=== PATIENT | female | born 1980 | race Hispanic/Latino ===

== ENCOUNTER 2016-10-27 19:50 | Emergency (ER) | payer MEDICAID ==
[2016-10-27 22:04] LABS: Basophils % (Auto) 0.6 % (0.0-1.8); Eosinophils % (Auto) 1.4 % (0.0-4.3); Hematocrit 40.4 % (30.3-42.9); Hemoglobin 13.3 gm/dl (10.1-14.3); Mean Corpuscular HGB Conc 33 % (30-34); Mean Corpuscular Hemoglobin 26 pg (28-32); Mean Corpuscular Volume 79 fl (79-97); Platelet Count 214 K/mm3 (140-440); Red Blood Count 5.11 M/mm3 (3.65-5.03); White Blood Count 10.7 K/mm3 (4.5-11.0)
[2016-10-27 22:23] LABS: Alanine Aminotransferase 21 units/L (7-56); Albumin/Globulin Ratio 1.3 %; Alkaline Phosphatase 63 units/L (35-129); Anion Gap 18 mmol/L; BUN/Creatinine Ratio 15.71; Blood Urea Nitrogen 11 mg/dL (7-17); Calcium 9.5 mg/dL (8.4-10.2); Carbon Dioxide 24 mmol/L (22-30); Chloride 95.1 mmol/L (98-107); Glucose 327 mg/dL (65-100); Potassium 4.2 mmol/L (3.6-5.0); Sodium 133 mmol/L (137-145)
[2016-10-28 00:07] LABS: Bilirubin,Urine NEG (Negative); Blood,Urine NEG (Negative); Ketones,Urine NEG (Negative); Leukocyte Esterase,Urine NEG (Negative); Mucus,Urine FEW /HPF; Nitrite,Urine NEG (Negative); Protein,Urine <15 mg/dL mg/dL (Negative); Urobilinogen,Urine < 2.0 mg/dL (<2.0)
--- NOTE | 2016-10-28 02:25 | Emergency Department Report ---
ED General Adult HPI - General Chief complaint: Abdominal Pain Stated complaint: 7 WKS PREG/CRAMPS/HIGH BLOOD SUGAR/UTI Time Seen by Provider: 10/28/16 02:19 Source: patient Mode of arrival: Ambulatory Limitations: No Limitations - History of Present Illness Initial comments: This is a 36-year-old female. She is previously unknown to me. She is 4, para 1. Last menstrual period is August. She reports that she follows life cycle. She reports that she is going [place] [facility] [place] The [place] presents to the ER with lower abdominal cramping, discomfort with urination, and sensation of hyperglycemia. Patient reports recent sexual activity with her partner, it is not more vigorous or enthusiastic than normal. She reports a few episodes of nausea. Patient reports that these symptoms feel similar to prior episodes of hyperglycemia. they have no exacerbating or relieving factors otherwise. The abdominal cramping does not radiate anywhere. -: Gradual Location: abdomen Quality: other (cramping) Consistency: intermittent Improves with: none Worsens with: none Associated Symptoms: nausea/vomiting. denies: denies other symptoms, confusion , chest pain, cough, diaphoresis, headaches, loss of appetite, malaise, shortness of breath, syncope, weakness - Related Data Previous Rx's Medication Instructions Recorded Last Taken Type Cyclobenzaprine [Flexeril 10 MG 10 mg PO TID PRN #30 tablet 12/15/14 Unknown Rx TAB] HYDROcodone/APAP 5-325 [Bland 1 each PO Q6HR PRN #20 tablet 12/15/14 Unknown Rx 5-325 mg TAB] Ibuprofen [Motrin 600 MG tab] 600 mg PO Q8H PRN #40 tablet 12/15/14 Unknown Rx metFORMIN [Glucophage] 500 mg PO BID #60 tablet 12/15/14 Unknown Rx Butalbit/Acetamin/Caff/Codeine 1 each PO Q8H PRN #15 capsule 03/18/15 Unknown Rx [Fioricet/Codeine [id number]] Promethazine [Phenergan TAB] 25 mg PO Q8HR PRN #15 tab 03/18/15 Unknown Rx Vit No.130/Iron/FA 1 each PO QDAY #30 tablet 10/23/15 Unknown Rx [ Tablet] Azithromycin [Zithromax TAB] 500 mg PO QDAY #6 tablet 11/05/16 Unknown Rx Sulfamethoxazole/Trimethoprim 1 each PO BID #14 tablet 04/23/16 Unknown Rx [Bactrim DS TAB] Doxylamine/Pyridoxine HCl 1 each PO QHS PRN #30 tablet. 10/28/16 Unknown Rx [Diclegis Dr 10-10 mg Tablet] Vee Root [Vee] 250 mg PO QID PRN #30 capsule 10/28/16 Unknown Rx Vit W-Ca,Fe,FA(<1 mg) 1 each PO QDAY #30 tablet 10/28/16 Unknown Rx [ Vitamins] Allergies Allergy/AdvReac Type Severity Reaction Status Date / Time acetaminophen Allergy Unknown Verified 11/26/14 13:46 [From Darvocet-N] Penicillins Allergy Unknown Verified 11/26/14 13:46 propoxyphene napsylate Allergy Unknown Verified 11/26/14 13:46 [facility] ED Review of Systems ROS: Stated complaint: 7 WKS PREG/CRAMPS/HIGH BLOOD SUGAR/UTI Other details as noted in HPI Constitutional: denies: fever Eyes: denies: vision change ENT: denies: epistaxis Respiratory: denies: cough Cardiovascular: denies: chest pain Gastrointestinal: abdominal pain Genitourinary: frequency. denies: hematuria, discharge, abnormal menses, dyspareunia Musculoskeletal: denies: back pain Skin: denies: lesions Neurological: denies: headache Psychiatric: anxiety ED Past Medical Hx - Past Medical History Previous Medical History?: Yes Hx Diabetes: Yes Hx Headaches / Migraines: Yes Additional medical history: Vaginal delivery x 1 - Surgical History Past Surgical History?: Yes Hx Cholecystectomy: Yes (2001) - Social History Smoking Status: Never Smoker Substance Use Type: None - Medications Home Medications: Home Medications Medication Instructions Recorded Confirmed Last Taken Type Cyclobenzaprine [Flexeril 10 MG 10 mg PO TID PRN #30 tablet 12/15/14 Unknown Rx TAB] HYDROcodone/APAP 5-325 [Bland 1 each PO Q6HR PRN #20 tablet 12/15/14 Unknown Rx 5-325 mg TAB] Ibuprofen [Motrin 600 MG tab] 600 mg PO Q8H PRN #40 tablet 12/15/14 Unknown Rx metFORMIN [Glucophage] 500 mg PO BID #60 tablet 12/15/14 Unknown Rx Butalbit/Acetamin/Caff/Codeine 1 each PO Q8H PRN #15 capsule 03/18/15 Unknown Rx [Fioricet/Codeine [id number]] Promethazine [Phenergan TAB] 25 mg PO Q8HR PRN #15 tab 03/18/15 Unknown Rx Vit No.130/Iron/FA 1 each PO QDAY #30 tablet 10/23/15 Unknown Rx [ Tablet] Azithromycin [Zithromax TAB] 500 mg PO QDAY #6 tablet 04/23/16 Unknown Rx Sulfamethoxazole/Trimethoprim 1 each PO BID #14 tablet 04/23/16 Unknown Rx [Bactrim DS TAB] Doxylamine/Pyridoxine HCl 1 each PO QHS PRN #30 tablet. 10/28/16 Unknown Rx [Diclegis Dr 10-10 mg Tablet] Vee Root [Vee] 250 mg PO QID PRN #30 capsule 10/28/16 Unknown Rx Vit W-Ca,Fe,FA(<1 mg) 1 each PO QDAY #30 tablet 10/28/16 Unknown Rx [ Vitamins] ED Physical Exam - General Limitations: No Limitations General appearance: alert, in no apparent distress - Head Head exam: Present: atraumatic, normocephalic - Eye Eye exam: Present: normal appearance, PERRL, EOMI, other (visual acuity intact to finger counting, color perception, reading at a close distance). Absent: nystagmus - ENT ENT exam: Present: normal exam, normal orophraynx, mucous membranes moist, normal external ear exam - Neck Neck exam: Present: normal inspection, full ROM. Absent: tenderness, meningismus - Respiratory Respiratory exam: Present: normal lung sounds bilaterally. Absent: respiratory distress, wheezes, rales, rhonchi, stridor, chest wall tenderness, accessory muscle use, decreased breath sounds, prolonged expiratory - Cardiovascular Cardiovascular Exam: Present: regular rate, normal rhythm, normal heart sounds. Absent: bradycardia, tachycardia, irregular rhythm, systolic murmur, diastolic murmur, rubs, gallop - GI/Abdominal GI/Abdominal exam: Present: soft, normal bowel sounds. Absent: distended, tenderness, guarding, rebound, rigid, pulsatile mass - Extremities Exam Extremities exam: Present: normal inspection, full ROM, normal capillary refill. Absent: tenderness, pedal edema, joint swelling, calf tenderness - Back Exam Back exam: Present: normal inspection, full ROM. Absent: tenderness, CVA tenderness (R), CVA tenderness (L), muscle spasm, paraspinal tenderness, vertebral tenderness - Neurological Exam Neurological exam: Present: alert (visual acuity intact to finger counting, color perception, reading at a close distance), oriented X3, normal gait, other (Extraocular movements intact. Tongue midline. No facial droop. Facial sensation intact to light touch in the V1, V2, V3 distribution bilaterally. 5 and 5 strength in 4 extremities.. Sensation is intact to light touch in 4 extremities.). Absent: motor sensory deficit - Psychiatric Psychiatric exam: Present: normal affect, normal mood - Skin Skin exam: Present: warm, dry, intact, normal color. Absent: rash ED Course Vital Signs 10/27/16 10/28/16 21:22 01:45 Temperature 99.2 F Pulse Rate 81 78 Respiratory 20 16 Rate Blood Pressure 129/93 Blood Pressure 138/78 [Left] O2 Sat by Pulse 100 95 Oximetry - Reevaluation(s) Reevaluation #1: 10/28/16 04:36 Differential diagnosis: Hyperglycemia, , miscarriage, threatened miscarriage, nausea and vomiting of Assessment and plan: 36-year-old female with hyperglycemia, cramping, reported nausea. She is afebrile with reassuring vital signs is tolerating liquid feeds at this time. She is found to be Rh-, RhoGAM is ordered. A pelvic ultrasound demonstrates an intrauterine , with a small subchorionic bleed. Patient is mildly hyperglycemic without anion gap acidosis. This is chronic, and can be followed up by her outpatient [facility] doctor. She is going to follow up with outpatient high risk as well. At this point in time, the patient will be discharged with nausea medication, vitamins, instructions to follow up with outpatient gynecology. ED Medical Decision Making - Lab Data Result diagrams: 10/27/16 21:48 10/27/16 21:48 Vital Signs 10/27/16 10/28/16 21:22 01:45 Temperature 99.2 F Pulse Rate 81 78 Respiratory 20 16 Rate Blood Pressure 129/93 Blood Pressure 138/78 [Left] O2 Sat by Pulse 100 95 Oximetry Lab Results 10/27/16 10/27/16 10/27/16 Range/Units 21:48 21:48 23:20 WBC 10.7 (4.5-11.0) K/mm3 RBC 5.11 H (3.65-5.03) M/mm3 Hgb 13.3 (10.1-14.3) gm/dl Hct 40.4 (30.3-42.9) % MCV 79 (79-97) fl MCH 26 L (28-32) pg MCHC 33 (30-34) % RDW 15.0 (13.2-15.2) % Plt Count 214 (140-440) K/mm3 Lymph % (Auto) 35.3 H (13.4-35.0) % [place] % (Auto) 6.9 (0.0-7.3) % Eos % (Auto) 1.4 (0.0-4.3) % Baso % (Auto) 0.6 (0.0-1.8) % Lymph # 3.8 (1.2-5.4) K/mm3 [place] # 0.7 (0.0-0.8) K/mm3 Eos # 0.2 (0.0-0.4) K/mm3 Baso # 0.1 (0.0-0.1) K/mm3 Seg Neutrophils % 55.8 (40.0-70.0) % Seg Neutrophils # 6.0 (1.8-7.7) K/mm3 Sodium 133 L (137-145) mmol/L Potassium 4.2 (3.6-5.0) mmol/L Chloride 95.1 L (98-107) mmol/L Carbon Dioxide 24 (22-30) mmol/L Anion Gap 18 mmol/L BUN 11 (7-17) mg/dL Creatinine 0.7 (0.7-1.2) mg/dL Estimated GFR > 60 ml/min BUN/Creatinine Ratio 15.71 % Glucose 327 H (65-100) mg/dL Calcium 9.5 (8.4-10.2) mg/dL Total Bilirubin 0.30 (0.1-1.2) mg/dL AST 14 (5-40) units/L ALT 21 (7-56) units/L Alkaline Phosphatase 63 (35-129) units/L Total Protein 7.0 (6.3-8.2) g/dL Albumin 4.0 (3.9-5) g/dL Albumin/Globulin Ratio 1.3 % HCG, Quant (0-4) mIU/mL Urine Color Straw (Yellow) Urine Turbidity Clear (Clear) Urine pH 6.0 (5.0-7.0) Ur Specific [place] 1.035 H (1.003-1.030) Urine Protein <15 mg/dl (Negative) mg/dL Urine Glucose (UA) >=500 (Negative) mg/dL Urine Ketones Neg (Negative) mg/dL Urine Blood Neg (Negative) Urine Nitrite Neg (Negative) Urine Bilirubin Neg (Negative) Urine Urobilinogen < 2.0 (<2.0) mg/dL Ur Leukocyte Esterase Neg (Negative) Urine WBC (Auto) 3.0 (0.0-6.0) /HPF Urine RBC (Auto) 2.0 (0.0-6.0) /HPF U Epithel Cells (Auto) 6.0 (0-13.0) /HPF Urine Mucus Few /HPF Urine HCG, Qual Positive A (Negative) Blood Type Antibody Screen BETI Antibody Screen Ord Rhogam Gestat Weeks WEEKS 10/28/16 10/28/16 Range/Units 03:05 Unknown WBC (4.5-11.0) K/mm3 RBC (3.65-5.03) M/mm3 Hgb (10.1-14.3) gm/dl Hct (30.3-42.9) % MCV (79-97) fl MCH (28-32) pg MCHC (30-34) % RDW (13.2-15.2) % Plt Count (140-440) K/mm3 Lymph % (Auto) (13.4-35.0) % Vigo % (Auto) (0.0-7.3) % Eos % (Auto) (0.0-4.3) % Baso % (Auto) (0.0-1.8) % Lymph # (1.2-5.4) K/mm3 [place] # (0.0-0.8) K/mm3 Eos # (0.0-0.4) K/mm3 Baso # (0.0-0.1) K/mm3 Seg Neutrophils % (40.0-70.0) % Seg Neutrophils # (1.8-7.7) K/mm3 Sodium (137-145) mmol/L Potassium (3.6-5.0) mmol/L Chloride (98-107) mmol/L Carbon Dioxide (22-30) mmol/L Anion Gap mmol/L BUN (7-17) mg/dL Creatinine (0.7-1.2) mg/dL Estimated GFR ml/min BUN/Creatinine Ratio % Glucose (65-100) mg/dL Calcium (8.4-10.2) mg/dL Total Bilirubin (0.1-1.2) mg/dL AST (5-40) units/L ALT (7-56) units/L Alkaline Phosphatase (35-129) units/L Total Protein (6.3-8.2) g/dL Albumin (3.9-5) g/dL Albumin/Globulin Ratio % HCG, Quant 9286 H (0-4) mIU/mL Urine Color (Yellow) Urine Turbidity (Clear) Urine pH (5.0-7.0) Ur Specific [place] (1.003-1.030) Urine Protein (Negative) mg/dL Urine Glucose (UA) (Negative) mg/dL Urine Ketones (Negative) mg/dL Urine Blood (Negative) Urine Nitrite (Negative) Urine Bilirubin (Negative) Urine Urobilinogen (<2.0) mg/dL Ur Leukocyte Esterase (Negative) Urine WBC (Auto) (0.0-6.0) /HPF Urine RBC (Auto) (0.0-6.0) /HPF U Epithel Cells (Auto) (0-13.0) /HPF Urine Mucus /HPF Urine HCG, Qual (Negative) Blood Type A NEGATIVE Antibody Screen TNR BETI Antibody Screen Negative Ord Rhogam Gestat Weeks <11 WEEKS - Radiology Data Radiology results: report reviewed, image reviewed Obstetrics ultrasound demonstrates an intrauterine gestation at 6 weeks and 1 day, with a small subchorionic bleed. Critical care attestation.: If time is entered above; I have spent that time in minutes in the direct care of this critically ill patient, excluding procedure time. ED Disposition Clinical Impression: Threatened miscarriage Disposition: DISCHARGED TO HOME OR SELFCARE Is pt being admited?: No Does the pt Need Aspirin: No Condition: Stable Instructions: Abdominal Pain (ED) Additional Instructions: Rest and avoid heavy lifting. Do not engage in sexual activity until cleared by a gynecology coffee shop manager. Follow up with your high risk maternal medicine specialist within the next 2 weeks. Because of her age and presence of diabetes, this is a high risk . Make certain to follow-up to have your blood sugars better and more closely managed. Take nausea medication and vitamins as directed. Return to the ER right away with new pain, worsened pain, migration of pain, fevers or chills, bleeding more than 2 pads soaked through and through per hour , dizziness, lightheadedness, chest pain, shortness of breath. Referrals: [facility] [Primary Care Provider] - 3-5 Days [facility] [Provider Group] - 3-5 Days [facility] [Provider Group] - 3-5 Days
--- NOTE | 2016-10-28 03:13 | Ultrasound Report ---
FINAL REPORT PROCEDURE: US OB TRANSVAGINAL TECHNIQUE: Real-time transvaginal sonography of the uterus, placenta, amniotic fluid, adnexa, and fetus was performed with image documentation. Measurements were obtained to determine age/size. M-mode Doppler was used to document heartbeat. CPT 86496 HISTORY: preg, cramping COMPARISON: No prior studies are available for comparison. FINDINGS: CRL: 4.4mm, which corresponds to a gestational age of: 6weeks, 1 days. Yolk Sac: Normal. Embryonic Cardiac Activity: 123 beats per minute Gestational Sac: Normal. There is a subchorionic bleed measuring 3 x 8 x 4 millimeters. Ovaries are not seen. Estimated delivery date: 06/22/2017 Comment: Complete anatomic survey at 18-20 weeks suggested. IMPRESSION: 1. Single living intrauterine gestation at approximately 6 weeks and 1 day 2. EDC by US is 06/22/2017. 3. There is a 3 x 8 x 4 millimeters subchorionic bleed.
--- NOTE | 2016-10-28 03:15 | Ultrasound Report ---
FINAL REPORT PROCEDURE: US OB TRANSABDOMINAL TECHNIQUE: Real-time TRANSABDOMINAL sonography of the uterus, placenta, amniotic fluid, adnexa, and fetus was performed with image documentation. Measurements were obtained to determine age/size. M-mode Doppler was used to document heartbeat. HISTORY: preg, cramping COMPARISON: No prior studies are available for comparison. FINDINGS: CRL: 4.4mm, which corresponds to a gestational age of: 6weeks, 1 days. Yolk Sac: Normal. Embryonic Cardiac Activity: 123 beats per minute Gestational Sac: Normal. There is a subchorionic bleed measuring 3 x 8 x 4 millimeters. Ovaries are not seen. Estimated delivery date: 06/22/2017 Comment: Complete anatomic survey at 18-20 weeks suggested. IMPRESSION: 1. Single living intrauterine gestation at approximately 6 weeks and 1 day 2. EDC by US is 06/22/2017. 3. There is a 3 x 8 x 4 millimeters subchorionic bleed.
[2016-10-28 05:14] VITALS: BP 130/70
== END 2016-10-28 05:28 | disposition home or self-care (01) ==
LOC: ED 19:50
DX: O20.0 Threatened abortion (principal); G43.909 Migraine, unspecified, not intractable, without status migrainosus; Z90.49 Acquired absence of other specified parts of digestive tract; Z88.0 Allergy status to penicillin; Z88.8 Allergy status to other drugs, medicaments and biological substances
CPT/HCPCS: 36415; 76801; 76817; 80053; 81001; 81025; 82962; 84702; 85025; 86850; 86900; 86901; 99284; J2790